=== PATIENT | male | born 1970 | race Caucasian/White ===

== ENCOUNTER → 2017-12-16 | Outpatient (CLI) | payer MEDICAID | LOC: FIMAGING 10:38 | PROVIDERS: ATTEND Family Medicine | DX: Z11.1 Encounter for screening for respiratory tuberculosis (principal) ==

== ENCOUNTER 2018-01-01 15:45 | Inpatient (IN) | payer SELFPAY ==
--- NOTE | 2018-01-01 16:06 | EDPHY ---
H & P Stated Complaint: Infection in L foot; unhappy with wound clinic Time Seen by Provider: 01/01/18 15:50 HPI/ROS: HPI CHIEF COMPLAINT: Infected 5th left toe HISTORY OF PRESENT ILLNESS: Patient is a 39-year-old male, history of diabetes , presents emergency room with an infected left 5th toe. Longstanding history of diabetes. Poorly controlled. He has previously had an amputation of his left great toe. Patient states for the past week he has had progression of the swelling, redness, and inflammation and pain of his left 5th toe. He is followed by wound clinic. He states he sees did see them on Thursday however it has gotten acutely worse. Denies fever. Does complain of 10/10 throbbing pain. Decided come the emergency room for evaluation. Past Medical History: Diabetes Past Surgical History: Previous left great toe amputation Social History: Denies daily use of drugs. Lives locally. Family History: Noncontributory ROS REVIEW OF SYSTEMS: A comprehensive 10 point review of systems is otherwise negative aside from elements mentioned in the history of present illness. Exam Constitutional triage nursing summary reviewed, vital signs reviewed, awake/ alert. Eyes normal conjunctivae and sclera, EOMI, PERRLA. HENT normal inspection, atraumatic, moist mucus membranes, no epistaxis, neck supple/ no meningismus, no raccoon eyes. Respiratory clear to auscultation bilaterally, normal breath sounds, no respiratory distress, no wheezing. Cardiovascular rate normal, regular rhythm, no murmur, no edema, distal pulses normal. Gastrointestinal soft, non-tender, no rebound, no guarding, normal bowel sounds, no distension, no pulsatile mass. Genitourinary no CVA tenderness. Musculoskeletal left lower extremity: 5th Toe Pain, Swelling, Redness, foul smell, no purulance, erythema tracking up the left foot. no midline vertebral tenderness, full range of motion, no calf swelling, no tenderness of extremities , no meningismus, good pulses, neurovascularly intact. Skin pink, warm, & dry, no rash, skin atraumatic. Neurologic awake, alert and oriented x 3, AAOx3, moves all 4 extremities equally, motor intact, sensory intact, CN II-XII intact, normal cerebellar, normal vision, normal speech. Psychiatric normal mood/affect. Heme/Lymph/Immune no lymphadenopathy. Differential Diagnosis: Includes but is not limited to in and in a particular order: Left foot infection, diabetic foot ulcer infection, osteomyelitis, deep space infection Medical Decision Making: Plan for this patient x-ray left foot rule out gas, check basic blood work, blood cultures, inflammatory markers, the most likely antibiotics most likely admission. Re-evaluation: 171: This patient will need to be admitted the hospital for diabetic foot wound infection of the left foot. There is also overlying cellulitis. X-rays reviewed there is some osteo changes on x-ray. Unsure if this is acute or chronic. Patient will need most likely MRI of the foot inpatient. No need for MRI emergently in the ER. Patient vital signs reviewed. He does have systemic white count. Elevated inflammatory markers. Cellulitis left foot. He has received broad-spectrum antibiotics IV vanc and IV Zosyn. Patient be admitted to Dr. Armando. Source: Patient - Personal History Current Tetanus Diphtheria and Acellular Pertussis (TDAP): Unsure - Medical/Surgical History Hx Diabetes: Yes Other PMH: diabetic - Social History Smoking Status: Current every day smoker Constitutional: Initial Vital Signs Temperature (C) 36.7 C 01/01/18 15:49 Heart Rate 96 01/01/18 15:49 Respiratory Rate 18 01/01/18 15:49 Blood Pressure 149/83 H 01/01/18 15:49 O2 Sat (%) 94 01/01/18 15:49 O2 Delivery Mode Room Air Allergies/Adverse Reactions: No Known Allergies Allergy (Unverified 01/01/18 15:48) Home Medications: Medication Instructions Recorded Glyburide Or Glimeride 5 mg PO AD 01/01/18 Insulin Unknown Type 0 units AD 01/01/18 metFORMIN HCL [Metformin HCl] 1,000 mg PO BID 01/01/18 traMADol [Ultram 50 mg (*)] 50 mg PO TID 01/01/18 Medical Decision Making - Data Points Laboratory Results: Laboratory Results 01/01/18 16:23 01/01/18 16:23 Medications Given: Discontinued Medications Hydromorphone HCl (Dilaudid) 0.5 mg IVP EDNOW ONE Stop: 01/01/18 16:11 Last Admin: 01/01/18 16:22 Dose: 0.5 mg Hydromorphone/Sodium Chloride (Hydromorphone) 0.2 - 0.4 mg IVP Q4HRS PRN PRN Reason: Pain, Severe Unable to Take PO Stop: 01/11/18 17:21 Last Admin: 01/01/18 18:36 Dose: 0.4 mg Hydromorphone/Sodium Chloride (Hydromorphone) 0.2 - 0.4 mg IVP Q2H PRN PRN Reason: Severe pain Stop: 01/11/18 17:21 Last Admin: 01/02/18 01:03 Dose: 0.4 mg Sodium Chloride (Ns) 1,000 mls @ 0 mls/hr IV EDNOW ONE; Wide Open PRN Reason: Protocol Stop: 01/01/18 16:11 Last Admin: 01/01/18 16:21 Dose: 1,000 mls Piperacillin/Tazobactam/Dextrose (Zosyn (Premix)) 100 mls @ 200 mls/hr IV EDNOW ONE PRN Reason: Protocol Stop: 01/01/18 17:40 Last Admin: 01/01/18 17:48 Dose: 100 mls Vancomycin HCl 1 gm/ Sodium (Chloride) 250 mls @ 250 mls/hr IV EDNOW ONE Stop: 01/01/18 18:59 Last Admin: 01/01/18 20:10 Dose: 250 mls Piperacillin/Tazobactam/Dextrose (Zosyn (Premix)) 100 mls @ 200 mls/hr IV Q6HRS [facility]ESCO PRN Reason: Protocol Stop: 02/01/18 00:00 Last Admin: 01/02/18 05:28 Dose: 100 mls Vancomycin HCl 1.25 gm/ Sodium (Chloride) 250 mls @ 166.667 mls/hr IV Q12H [facility] Stop: 02/01/18 07:59 Last Admin: 01/02/18 07:36 Dose: 250 mls Insulin Human Lispro (Humalog Lispro) 0 unit SC TIDMEAL FRANCESCO PRN Reason: Protocol Stop: 06/30/18 17:59 Last Admin: 01/02/18 08:33 Dose: Not Given Nicotine (Nicoderm Cq) 21 mg TD DAILY [facility]CO Stop: 06/30/18 18:44 Last Admin: 01/01/18 18:42 Dose: 21 mg Ondansetron HCl (Zofran) 4 mg IVP EDNOW ONE Stop: 01/01/18 16:11 Last Admin: 01/01/18 16:22 Dose: 4 mg Oxycodone HCl (Oxycodone Ir) 5 - 10 mg PO Q3HRS PRN PRN Reason: Pain, Severe Able to Take PO Stop: 01/11/18 17:21 Last Admin: 01/02/18 00:17 Dose: 5 mg Tramadol HCl (Ultram) 50 mg PO TID [facility]CO Stop: 06/30/18 21:59 Last Admin: 01/01/18 21:08 Dose: 50 mg Departure - Departure Disposition: [facility] Clinical Impression: Diabetic foot infection Cellulitis Qualifiers: Site of cellulitis: extremity Site of cellulitis of extremity: lower extremity Laterality: left Qualified Code(s): L03.116 - Cellulitis of left lower limb Condition: Fair
[2018-01-01] MEDS ORDERED: ONDANSETRON 4 MG/2 ML VIAL IVP ONE (16:10)
[2018-01-01] MEDS ORDERED: NS 1,000 ML IV ONE (16:10)
[2018-01-01] MEDS ORDERED: HYDROmorphONE/DILAUDID 2 MG/ML INJ IVP ONE (16:10)
[2018-01-01 16:32] LABS: PLATELET COUNT 436 10^3/uL (150-400)
[2018-01-01 16:42] LABS: INR 0.95 (0.83-1.16); PROTIME(PATIENT) 12.9 SEC (12.0-15.0)
[2018-01-01] MEDS ORDERED: VANCOMYCIN HCL/NORMAL SALINE 250 ML IV ONE (17:11)
[2018-01-01] MEDS ORDERED: PIPERACILLIN/TAZO 4.5 GM/DEX 100 ML IV ONE (17:11)
[2018-01-01] MEDS ORDERED: ONDANSETRON 4 MG/2 ML VIAL IVP PRN (17:22)
[2018-01-01] MEDS ORDERED: HYDROmorphone HCL/NS 0.5 MG/ML SYR IVP PRN (17:22)
[2018-01-01] MEDS ORDERED: ONDANSETRON DISINTEGRATING 4 MG TAB PO PRN (17:22)
[2018-01-01] MEDS ORDERED: ACETAMINOPHEN 325 MG TAB PO PRN (17:22)
[2018-01-01] MEDS ORDERED: D50W 25 GM/50 ML SYR IVP PRN (17:39)
[2018-01-01] MEDS ORDERED: VANCOMYCIN 1 GM in NS 250 ML IV ONE (18:00)
[2018-01-01] MEDS ORDERED: PIPERACILLIN/TAZO 4.5 GM/DEX 100 ML IV SCH (18:00)
--- NOTE | 2018-01-01 18:07 | GHP ---
[f rep st] HISTORY AND PHYSICAL DATE OF ADMISSION: 01/01/2018 CHIEF COMPLAINT: Left foot pain. HISTORY OF PRESENT ILLNESS: 47-year-old man with a history of diabetes, presents with worsening left foot pain. He tells me, although I cannot confirm this in the chart, that he was seen [facility] this [facility]. They split open his toe. Since then, his pain has been increasing. He has had worsening swelling and redness in his left foot, has been extending up to his calf as well. He has had no subjective fevers at home. He has a history of a right great toe amputation due to an infection. PAST MEDICAL/SURGICAL HISTORY: 1. Diabetes mellitus on insulin as well as oral medications. 2. Left great toe amputation. MEDICATIONS: Please see medication reconciliation. ALLERGIES: No known drug allergies. SOCIAL HISTORY: He smokes "as much as he can". He does not drink. He lives in [place]. FAMILY HISTORY: He has diabetes. REVIEW OF SYSTEMS: A 10-point review of systems is conducted and is negative except per HPI. PHYSICAL EXAM: VITAL SIGNS: Blood pressure is 149/83, heart rate 96, respiration rate 18, saturating 94% on room air. Temperature is 36.7. GENERAL : Patient is a pleasant man who is resting comfortably in no acute distress. HEENT: Shows him to be normocephalic, atraumatic. CARDIOVASCULAR: Regular rate and rhythm. No murmurs, rubs, or gallops. PULMONARY: Lungs clear to auscultation bilaterally. ABDOMEN: Soft, nontender, nondistended. SKIN: No rash. : No Christian. NEUROLOGIC: Shows him to be alert and oriented x3. He is moving all extremities. PSYCHIATRIC: Shows normal mood and affect. EXTREMITIES : Shows his left 5th toe to have odd area of white which may be pus. There does seem to be some skin split. It is swollen, erythematous, very tender to palpation. LABS: White count is 10.4. ESR 69. INR 0.9. Lactate is 1.9, CRP is 170, glucose is 214, chloride 96, creatinine 0.7. DATA: 1. I discussed this with both Dr. Cuevas as well as Dr. Cordoba. She will consult. 2. 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 Possibly fracture in the left great toe as well as possible osteomyelitis in the 1st great toe. IMPRESSION AND PLAN: 1. Diabetic foot infection, possible osteomyelitis: Agree with antibiotics vancomycin and Zosyn. Dr. Cordoba has been consulted. She will see him while he is in the emergency department. Will likely need a debridement. I have also ordered an MRI given the multiple sites of osteomyelitis potentially seen on foot x-ray. I have placed an Infectious Disease consult. 2. Diabetes mellitus: He is unsure of his home insulin dose. I will start conservatively with 10 units of glargine - he may need more. He will also receive sliding scale insulin. Check blood sugars. I have checked an A1c as well. 3. Venous thromboembolism risk is moderate; however, with possible surgery, will hold off on pharmacologic anticoagulation. /[id number]/MODL MTDD
[2018-01-01] MEDS: INSULIN LISPRO 100 UNIT/ML SC SCH (18:44)
[2018-01-01] MEDS ORDERED: NICOTINE 21 MG/24 HR PATCH TD SCH (18:45)
--- NOTE | 2018-01-01 19:12 | PDMN ---
Medical Necessity Medical necessity: C/M review: [place] [facility] [place] Cellul[place], M-600 Osteomyelitis: Acute and persistent worsening diabetic left foot infection, possible osteomyelitis, worsening swelling and redness left foot extending up to left calf, multiple sites of osteomyelitis potentially seen on left foot xray, pain, requiring planned 01/01/2017 MRI left lower extremity, Infectious Disease consult, General surgery consult, likely future surgery - debridement during this hospitalization, ongoing IV Zosyn Q 6 hrs., IV Vancomycin, IV Dilaudid, comorbid left 5th toe has odd area of white which may be pus, on physical exam present on admission, patient stated he was seen in Wound clinic 12/28/2017 and that they split open his toe, diabetes mellitus on oral meds and insulin, history of left great toe amputation. anticipates > 2 MN LOS for ongoing med nec for eval and TX of above.
[2018-01-01] MEDS ORDERED: D50W 25 GM/50 ML VIAL IVP PRN (19:30)
--- NOTE | 2018-01-01 20:22 | GCON ---
[f rep st] CONSULTATION DATE OF CONSULTATION: 01/01/2018 REFERRING PHYSICIAN: Ty Armando MD CHIEF COMPLAINT: Diabetic foot ulcer. HISTORY OF PRESENT ILLNESS: The patient is a 47-year-old man with a history of diabetes who presents with a worsening left foot infection. [facility] and re ports that his foot was debrided and since that time, infection has worsened. He has pain up through his calf. He denies fevers. PAST MEDICAL HISTORY: Insulin-dependent diabetes mellitus. SURGICAL HISTORY: Left great toe amputation. ALLERGIES: No known drug allergies. SOCIAL HISTORY: He denies alcohol use. He does use tobacco products. FAMILY HISTORY: Diabetes. REVIEW OF SYSTEMS: A 10-point review of systems is negative. PHYSICAL EXAM: VITAL SIGNS: Afebrile, 96, 149/83, 18, 94%. GENERAL: Pleasant man, well-groomed, s itting up on gurney in the ER. HEENT: Normocephalic, atraumatic. No gross hearing deficits. Pupil s equal and round. No scleral icterus. LUNGS: Clear to auscultation bilaterally. No increased wor k of breathing. CARDIAC: Palpable pedal pulses. He has regular rate. NEURO: He has decreased sen sation on his left foot. PSYCH: Mood and affect normal. EXTREMITIES: Amputated left great toe. S KIN: He has a wound on his left 5th toe on the lateral aspect. I can palpate bone. There is erythe ma extending up his foot. His foot is also edematous. IMPRESSION AND PLAN: The patient is a 47-year-old man with osteomyelitis of his left 5th toe. We di scussed MRI versus going to the operating room. He would like to go to the operating room for amputa tion of the left 5th toe. The risks and benefits were discussed. He understands especially that he could have poor wound healing due to his diabetes and tobacco use. He has recently had something to eat and drink and so we will do this in the morning. He will be placed on antibiotics overnight. /[id number]/MODL
[2018-01-01] MEDS ORDERED: traMADol 50 MG TAB PO SCH (22:00)
[2018-01-01] MEDS: oxyCODONE IR 5 MG TAB PO PRN (23:37)
[2018-01-02] MEDS: PIPERACILLIN/TAZO 4.5 GM/DEX 100 ML IV SCH ×2 (00:11→05:28)
[2018-01-02] MEDS: oxyCODONE IR 5 MG TAB PO PRN ×2 (00:17→07:36)
[2018-01-02] MEDS ORDERED: HYDROmorphone HCL/NS 0.5 MG/ML SYR IVP PRN (00:50)
[2018-01-02 05:07] LABS: PLATELET COUNT 413 10^3/uL (150-400)
[2018-01-02 07:24] VITALS: BP 159/99; PULSE 85; RESP 16; TEMP 98; O2SAT 95
[2018-01-02] MEDS ORDERED: VANCOMYCIN 1.25 GM in NS 250 ML IV SCH (08:00)
[2018-01-02] MEDS: INSULIN LISPRO 100 UNIT/ML SC SCH (08:33)
[2018-01-02] MEDS ORDERED: INSULIN GLARGINE 100 UNITS/ML UNIT SC SCH (09:00)
--- NOTE | 2018-01-02 10:13 | SOAPPROG ---
SOAP Progress Note Assessment/Plan: Assessment: notified patient left ama very concerned about cellulitus and osteomylitis - will likely progress without intervention I am here tomorrow. If he re-presents today or after tomorrow, will need to call surgeon or general cargo clerk science consultant Plan: 01/02/18 10:12 Objective: Vital Signs Temp Pulse Resp BP Pulse Ox 36.6 C 85 16 159/99 H 95 01/02/18 07:23 01/02/18 07:23 01/02/18 07:23 01/02/18 07:23 01/02/18 07:23 Laboratory Results 01/02/18 04:32 01/02/18 04:32 01/01/18 01/02/18 01/03/18 05:59 05:59 05:59 Intake Total 400 Balance 400 PT 12.9 SEC (12.0-15.0) 01/01/18 16:23 INR 0.95 (0.83-1.16) 01/01/18 16:23 ICD10 Worksheet Patient Problems: Problems Problem Status Onset Cellulitis Acute Diabetic foot infection Acute
--- NOTE | 2018-01-02 19:51 | GDS ---
[f rep st] DISCHARGE SUMMARY ALL DIAGNOSES: 1. Left toe osteomyelitis/diabetic foot ulcer/overlying cellulitis. 2. Markedly elevated inflammatory markers. 3. Diabetes mellitus. HOSPITAL COURSE: A 47-year-old man admitted with a diabetic foot ulcer, likely underlying osteomyeli tis. Dr. Cordoba had been consulted, she planned to amputate the left toe. Overnight, the patient bec tracee frustrated with his pain management, wanting IV Dilaudid for what he described as moderate pain. He decided to leave AMA. He signed out with the appropriate paperwork. I was not on-call and was n ot contacted about this prior to his departure. I believe he signed out before the Hospitalist group was contacted at all. His foot as well as overall clinical picture were very concerning with system ic signs of infection as well as local cellulitis and underlying osteomyelitis. /[id number]/MODL
== END 2018-01-02 08:12 | disposition left against medical advice (07) | DRG 638 ==
LOC: F1N 18:17
PROVIDERS: ADMIT Student in an Organized Health Care Education/Training Program; ATTEND Student in an Organized Health Care Education/Training Program
DX: E11.69 Type 2 diabetes mellitus with other specified complication (principal); M86.172 Other acute osteomyelitis, left ankle and foot; L03.116 Cellulitis of left lower limb; Z53.21 Procedure and treatment not carried out due to patient leaving prior to being seen by health care provider; Z79.4 Long term (current) use of insulin; Z72.0 Tobacco use
CPT/HCPCS: 96374; J1170; J1815; J2405; J2543; J3370

== ENCOUNTER 2018-06-25 17:40 | Emergency (ER) | payer MEDICAID ==
--- NOTE | 2018-06-25 18:50 | EDPHY ---
H & P Smoking Status: Current every day smoker Time Seen by Provider: 06/25/18 18:05 HPI/ROS: CHIEF COMPLAINT: Pain left foot and leg HISTORY OF PRESENT ILLNESS: 48-year-old male presents to the emergency department by private vehicle with concerns about recurring infection in his left foot and leg. Patient has a history of type 2 diabetes on insulin and had most recent amputation to his left foot in January of 2018. He has been doing well until about a week ago he noticed pain and some swelling in his left foot and ankle. He is concerned about recurring infection. He denies a fever. He denies overall systemic symptoms. He feels his energy is normal. No pain in his chest or difficulty breathing. No abdominal pain. He feels pain and swelling in his left foot and ankle with pain radiating up into his left calf. Denies pain in the left knee. Denies pain in the left hip. REVIEW OF SYSTEMS: Constitutional: No fever, no chills. Eyes: No double or blurry vision. ENT: No sore throat. Respiratory: No cough, no shortness of breath. Cardiac: No chest pain. Gastrointestinal: No abdominal pain, vomiting or diarrhea. Genitourinary: No dysuria. Musculoskeletal: No neck or back pain. Skin: No rashes. Neurological: No headache. (Sandy Matthews) Past Medical/Surgical History: Hypertension, diabetes, amputation left foot (Sandy Matthews) Social History: Single (Sandy Matthews) Physical Exam: General Appearance: Alert, no distress. Afebrile. No apparent distress. Eyes: Pupils equal and round. Extraocular motions are all intact. ENT: Mouth: Mucous membranes moist. Respiratory: No wheezing, rhonchi, or rales, lungs are clear to auscultation. Cardiovascular: Regular rate and rhythm. Gastrointestinal: Abdomen is soft and nontender, no masses, no rebound or guarding, bowel sounds normal. Neurological: Alert and oriented x 3, cranial nerves II through XII grossly intact Skin: Warm and dry, no rashes. Musculoskeletal: Nontender to palpate along the cervical, thoracic or lumbar spine. Neck is supple. Extremities: Amputation of the left foot down to the metatarsals. There is no obvious redness. It is slightly warm to palpate with diffuse tenderness with palpation especially in the left ankle up into about the left mid calf. There is no lymphangitis. He has full range of motion of the left ankle with only minimal pain. Full range of motion of the left knee. There is no swelling noted to the knee. His gait is not tested due to pain. Psychiatric: Patient is oriented X 3, there is no agitation. (Sandy Matthews) Constitutional: Initial Vital Signs Temperature (C) 37.1 C 06/25/18 17:44 Heart Rate 96 06/25/18 17:44 Respiratory Rate 16 06/25/18 17:44 Blood Pressure 169/89 H 06/25/18 17:44 O2 Sat (%) 94 06/25/18 17:44 O2 Delivery Mode Room Air Allergies/Adverse Reactions: No Known Allergies Allergy (Unverified 06/25/18 17:43) Home Medications: Medication Instructions Recorded Glyburide Or Glimeride 5 mg PO AD 01/01/18 Insulin Unknown Type 0 units AD 01/01/18 metFORMIN HCL [Metformin HCl] 1,000 mg PO BID 01/01/18 Bp Medication 06/25/18 oxyCODONE/APAP 5/325 [Percocet 1 - 2 tab PO Q4-6PRN PRN #7 tab 06/25/18 5/325] Medical Decision Making - Diagnostics Imaging: Discussed imaging studies w/ documentation coordinator Radiologist, I viewed and interpreted images myself - Diagnostics Imaging Results: Imaging Impressions Extremity Venous Study 06/25/18 18:41 Impression: No deep venous thrombosis left leg. Results called to Sandy Michele PA-C, at 7:50 PM. Foot X-Ray 06/25/18 18:41 Impression: Soft tissue swelling with no acute osseous findings. Tibia/Fibula X-Ray 06/25/18 18:49 Impression: No acute osseous findings. ED Course/Re-evaluation: 48-year-old male presents to the emergency department with pain in his left foot with concerns about recurring infection. X-rays of the left foot and left tib-fib reveal no evidence of osteomyelitis or fracture. Ultrasound revealed no evidence of DVT. Laboratory studies are all within normal limits including normal white blood cell count. The case was discussed with Dr. Demetrio Sethi, secondary supervising physician, who also evaluated the patient and agreed with discharging the patient and he will follow up as scheduled with his primary care provider on . Patient requested pain medication. Patient was given a take-home pack of Percocet with 4 tablets an additional script with #7 tablets. (Sandy Matthews) Differential Diagnosis: Including but not limited to osteomyelitis, cellulitis, DVT, necrotizing fasciitis, muscular spasm (Sandy Matthews) Other Provider: PHYSICIAN DOCUMENTATION: The patient was evaluated and managed by the Physician Ticket Agent and myself. I have reviewed the chart and agree with the findings and plan of care as documented; except that I do not appreciate any warmth on exam of the stump and leg on my exam. In addition, I examined the patient myself at 2004. History confirmed as the pain primarily in the calf, no new injury and no fever. Physical findings as follows: Compartments are soft in the lower leg. There is no warmth or redness on the skin of the stump. No crepitus and no fluctuance. Labs reviewed including WBC 9.3, imaging ultrasound and x-ray. I think that acute infection is not likely at this time. He is able to plantar and dorsiflex at the ankle. I am the secondary supervising physician. (Demetrio Sethi) - Data Points Laboratory Results: Laboratory Results 06/25/18 18:53 06/25/18 18:53 06/25/18 06/25/18 18:53 18:53 WBC 9.36 10^3/uL 10^3/uL (3.80-9.50) RBC 4.49 10^6/uL 10^6/uL (4.40-6.38) Hgb 13.7 g/dL g/dL (13.7-17.5) Hct 40.5 % % (40.0-51.0) MCV 90.2 fL fL (81.5-99.8) MCH 30.5 pg pg (27.9-34.1) MCHC 33.8 g/dL g/dL (32.4-36.7) RDW 13.3 % % (11.5-15.2) Plt Count 397 10^3/uL 10^3/uL (150-400) MPV 10.1 fL fL (8.7-11.7) Neut % (Auto) 61.2 % % (39.3-74.2) Lymph % (Auto) 24.8 % % (15.0-45.0) [place] % (Auto) 9.4 % % (4.5-13.0) Eos % (Auto) 3.5 % % (0.6-7.6) Baso % (Auto) 0.9 % % (0.3-1.7) Nucleat RBC Rel Count 0.0 % % (0.0-0.2) Absolute Neuts (auto) 5.73 10^3/uL 10^3/uL (1.70-6.50) Absolute Lymphs (auto) 2.32 10^3/uL 10^3/uL (1.00-3.00) Absolute Monos (auto) 0.88 10^3/uL H 10^3/uL (0.30-0.80) Absolute Eos (auto) 0.33 10^3/uL 10^3/uL (0.03-0.40) Absolute Basos (auto) 0.08 10^3/uL 10^3/uL (0.02-0.10) Absolute Nucleated RBC 0.00 10^3/uL 10^3/uL (0-0.01) Immature Gran % 0.2 % % (0.0-1.1) Immature Gran # 0.02 10^3/uL 10^3/uL (0.00-0.10) Sodium 139 mEq/L mEq/L (135-145) Potassium 4.6 mEq/L mEq/L (3.3-5.0) Chloride 105 mEq/L mEq/L (97-110) Carbon Dioxide 27 mEq/l mEq/l (22-31) Anion Gap 7 mEq/L L mEq/L (8-16) BUN 25 mg/dL H mg/dL (7-23) Creatinine 0.7 mg/dL mg/dL (0.7-1.3) Estimated GFR > 60 Glucose 194 mg/dL H mg/dL (70-100) Calcium 10.0 mg/dL mg/dL (8.5-10.4) Medications Given: Discontinued Medications Oxycodone/Acetaminophen (Percocet 5/325mg Prepack#4) 1 btl TAKEHOME EDNOW ONE Stop: 06/25/18 20:49 Last Admin: 06/25/18 21:02 Dose: 1 btl Departure - Departure Disposition: Home, Routine, Self-Care Clinical Impression: Left foot pain, Pain of left calf Condition: Good Instructions: Oxycodone/Acetaminophen (By mouth), Arthralgia (ED) Additional Instructions: Keep scheduled follow-up appointment with primary care provider on . Oxycodone for severe pain only to help you sleep. Referrals: Chloe Gillespie PA [Primary Care Provider] - As per Instructions (Keep scheduled appointment.) Prescriptions: oxyCODONE/APAP 5/325 [Percocet 5/325] 1 - 2 tab PO Q4-6PRN PRN #7 tab PRN Reason: For Moderate To Severe Pain
[2018-06-25 19:15] LABS: PLATELET COUNT 397 10^3/uL (150-400)
[2018-06-25] MEDS ORDERED: OXYCODONE/APAP 5/325MG PREPACK#4 BTL TAKEHOME ONE (20:48)
[2018-06-25 21:05] VITALS: BP 147/88
== END 2018-06-25 21:04 | disposition home or self-care (01) ==
DX: M79.662 Pain in left lower leg (principal); E11.9 Type 2 diabetes mellitus without complications; Z79.4 Long term (current) use of insulin; Z89.432 Acquired absence of left foot